=== PATIENT | male | born 1950 | race Caucasian/White ===

== ENCOUNTER 2017-04-13 07:49 | Day surgery (SDC) | payer OTHER ==
[~2017-04-13] VITALS: Ht 175.3 cm; Wt 124.7 kg
[~2017-04-13 07:49] MED LIST: AZILECT1 MG PO; CELEBREX200 MG PO; CYMBALTA30 MG PO; FARXIGA10 MG PO; GLUCOPHAGE500 MG PO; HYZAAR 100-21 TABLET PO; INVOKANA300 MG PO; LIPITOR40 MG PO; LO-DOSE ASPIRIN81 M2 PO; LORCET 5-325 M1 EACH PO; NEURONTIN400 MG PO; NORVASC10 MG PO; REQUIP XL8 MG PO; SINEMET 25-2501 EAC1 PO; STOOL SOFTENER100 MG PO; TENORMIN50 MG PO; TOPROL XL100 MG PO; VITAMIN D5000 UNI1 PO; ZANTAC300 MG PO
== END 2017-04-13 10:15 | disposition home or self-care (01) ==
LOC: PAIN 07:49 → SDC 14:30 → PAIN 14:30
PROVIDERS: Anesthesiology Pain Medicine
DX: M47.26 Other spondylosis with radiculopathy, lumbar region (principal); M48.061 Spinal stenosis, lumbar region without neurogenic claudication; G21.9 Secondary parkinsonism, unspecified; K21.9 Gastro-esophageal reflux disease without esophagitis; E78.5 Hyperlipidemia, unspecified; I10 Essential (primary) hypertension; Z86.73 Personal history of transient ischemic attack (TIA), and cerebral infarction without residual deficits; Z79.82 Long term (current) use of aspirin; Z79.891 Long term (current) use of opiate analgesic
CPT/HCPCS: 82948; J1100

== ENCOUNTER 2017-05-18 08:37 | Day surgery (SDC) | payer OTHER ==
[~2017-05-18] VITALS: Ht 175.3 cm; Wt 124.7 kg
== END 2017-05-18 10:30 | disposition home or self-care (01) ==
LOC: PAIN 08:37
PROVIDERS: Anesthesiology Pain Medicine
DX: M47.816 Spondylosis without myelopathy or radiculopathy, lumbar region (principal); M54.16 Radiculopathy, lumbar region; M48.061 Spinal stenosis, lumbar region without neurogenic claudication; I10 Essential (primary) hypertension; E78.5 Hyperlipidemia, unspecified; K21.9 Gastro-esophageal reflux disease without esophagitis; E11.9 Type 2 diabetes mellitus without complications; G21.9 Secondary parkinsonism, unspecified; Z79.82 Long term (current) use of aspirin; Z79.84 Long term (current) use of oral hypoglycemic drugs; Z79.891 Long term (current) use of opiate analgesic
CPT/HCPCS: 82948; J1100; J2250; J3010